=== PATIENT | female | born 1960 | race Caucasian/White ===

== ENCOUNTER 2016-07-31 19:00 | Emergency (ER) | payer OTHER | END 2016-07-31 19:06 | disposition left against medical advice (07) | LOC: ED 19:00 | DX: R05 Cough (principal); Z53.21 Procedure and treatment not carried out due to patient leaving prior to being seen by health care provider ==

== ENCOUNTER 2023-12-31 05:45 | Observation (INO) ==
[2023-12-31] MEDS ORDERED: Labetalol IV 5 MG/ML 20 ml VIAL IV PUSH ONE (15:10)
[2023-12-31] MEDS: Labetalol IV 5 MG/ML 20 ml VIAL IV PUSH ONE (15:49)
[2023-12-31] MEDS ORDERED: Dextrose 50% Syringe 50 ml 25 GM/50 ML SYRINGE IV PUSH PRN (15:57)
[2023-12-31] MEDS ORDERED: Enoxaparin 40 MG/0.4 ML SYR SUBCUT SCH ×2 (16:00)
[2023-12-31] MEDS ORDERED: Labetalol IV 5 MG/ML 20 ml VIAL IV PUSH PRN ×2 (16:18→16:21)
[2023-12-31 16:52] LABS: Free T4 0.68 ng/dL (0.61-1.12)
[2023-12-31 17:33] LABS: TSH Ultra Thyroid Stim Horm 38.21 mcIU/mL (0.34-5.60)
[2023-12-31] MEDS: Enoxaparin 40 MG/0.4 ML SYR SUBCUT SCH (18:45)
[2023-12-31] MEDS: Insulin GLARGINE 100 un/ml 10 ml VIAL SUBCUT SCH (21:43)
[2024-01-01 06:59] LABS: Calcium 9.4 mg/dL (8.6-10.3); Creatinine, Serum 1.16 mg/dL (0.51-0.95); Potassium 3.2 mmol/L (3.5-5.0); eGFR CKD-EPI 52.6 (>60)
[2024-01-01 10:28] LABS: ABS Basophils 0.1 10^3/uL (0.0-0.1); ABS Eosinophils 0.1 10^3/uL (0.0-0.5); ABS Lymphocytes 1.9 10^3/uL (1.0-4.8); ABS Monocytes 0.5 10^3/uL (0.0-0.9); ABS Neutrophils 4.3 10^3/uL (1.5-7.6); Hematocrit 39.1 % (35-45); Hemoglobin 13.5 g/dL (11.5-14.3); Lymphocyte % 27.5 %; Mean Corpuscular Hemoglobin 32.1 pg (27-33); Mean Corpuscular Hgb Conc 34.5 g/dL (31-36); Mean Corpuscular Volume 92.9 fL (80-97); Platelet Count 258 10^3/uL (150-450); Red Blood Count 4.21 10^6/uL (3.63-4.92); Red Cell Distribution Width 17.4 % (12-17); White Blood Count 6.8 10^3/uL (3.8-11.8)
[2024-01-01] MEDS ORDERED: Sulfur Hexaflouride MICROSPHR 25 MG VIAL ONE (11:41)
[2024-01-01] MEDS ORDERED: Senna TAB 8.6 mg TAB PO PRN (21:02)
[2024-01-01] MEDS: Senna TAB 8.6 mg TAB PO PRN (21:32)
[2024-01-02 05:54] LABS: ABS Eosinophils 0.2 10^3/uL (0.0-0.5); ABS Lymphocytes 2.3 10^3/uL (1.0-4.8); ABS Monocytes 0.5 10^3/uL (0.0-0.9); ABS Neutrophils 4.6 10^3/uL (1.5-7.6); ABS Nucleated RBC 0.01 10^3/ul; Eosinophil % 2.2 %; Hematocrit 38.7 % (35-45); Hemoglobin 13.6 g/dL (11.5-14.3); Lymphocyte % 30.4 %; Mean Corpuscular Hemoglobin 32.6 pg (27-33); Mean Corpuscular Hgb Conc 35.1 g/dL (31-36); Mean Corpuscular Volume 92.7 fL (80-97); Mean Platelet Volume 7.8 fL (7.5-11.2); Nucleated Red Blood Cells % 0.1 %/100WBC (0.0-0.8); Platelet Count 285 10^3/uL (150-450); Red Blood Count 4.18 10^6/uL (3.63-4.92); Red Cell Distribution Width 16.9 % (12-17); White Blood Count 7.7 10^3/uL (3.8-11.8)
[2024-01-02 07:18] LABS: Calcium 9.4 mg/dL (8.6-10.3); Creatinine, Serum 1.23 mg/dL (0.51-0.95); Phosphorus 3.6 mg/dL (2.5-5.0); Potassium 3.1 mmol/L (3.5-5.0); eGFR CKD-EPI 49.1 (>60)
[2024-01-02] MEDS ORDERED: Polyethylene Glycol 3350 17 GM PACKET PO SCH (08:00)
[2024-01-02] MEDS: Polyethylene Glycol 3350 17 GM PACKET PO SCH (08:25)
[2024-01-02] MEDS ORDERED: Potassium Chlor 20 meq TAB.ER PO SCH (09:00)
[2024-01-02] MEDS: Potassium Chlor 20 meq TAB.ER PO SCH (11:44)
[2024-01-02] MEDS ORDERED: Nicotine PATCH 14 MG/24 HR PATCH TRANSDERM SCH (22:00)
[2024-01-02] MEDS: Nicotine PATCH 14 MG/24 HR PATCH TRANSDERM SCH (22:23)
[2024-01-03 06:56] LABS: Calcium 8.8 mg/dL (8.6-10.3); Creatinine, Serum 1.19 mg/dL (0.51-0.95); Magnesium 1.9 mg/dL (1.9-2.7); Phosphorus 3.4 mg/dL (2.5-5.0); Potassium 3.7 mmol/L (3.5-5.0); eGFR CKD-EPI 51.1 (>60)
[2024-01-03 07:10] LABS: ABS Eosinophils 0.1 10^3/uL (0.0-0.5); ABS Lymphocytes 2.2 10^3/uL (1.0-4.8); ABS Monocytes 0.6 10^3/uL (0.0-0.9); ABS Neutrophils 4.6 10^3/uL (1.5-7.6); ABS Nucleated RBC 0.01 10^3/ul; Eosinophil % 1.9 %; Hematocrit 39.2 % (35-45); Hemoglobin 13.5 g/dL (11.5-14.3); Lymphocyte % 28.7 %; Mean Corpuscular Hemoglobin 32.6 pg (27-33); Mean Corpuscular Hgb Conc 34.3 g/dL (31-36); Mean Corpuscular Volume 95.1 fL (80-97); Mean Platelet Volume 7.9 fL (7.5-11.2); Nucleated Red Blood Cells % 0.1 %/100WBC (0.0-0.8); Platelet Count 246 10^3/uL (150-450); Red Blood Count 4.13 10^6/uL (3.63-4.92); Red Cell Distribution Width 16.9 % (12-17); White Blood Count 7.6 10^3/uL (3.8-11.8)
[2024-01-04 05:35] LABS: ABS Eosinophils 0.2 10^3/uL (0.0-0.5); ABS Lymphocytes 2.3 10^3/uL (1.0-4.8); ABS Monocytes 0.5 10^3/uL (0.0-0.9); ABS Neutrophils 5.1 10^3/uL (1.5-7.6); Hematocrit 41.6 % (35-45); Hemoglobin 14.1 g/dL (11.5-14.3); Lymphocyte % 28.3 %; Mean Corpuscular Hemoglobin 31.7 pg (27-33); Mean Corpuscular Hgb Conc 33.9 g/dL (31-36); Mean Corpuscular Volume 93.3 fL (80-97); Mean Platelet Volume 7.7 fL (7.5-11.2); Platelet Count 285 10^3/uL (150-450); Red Blood Count 4.46 10^6/uL (3.63-4.92); Red Cell Distribution Width 17.1 % (12-17); White Blood Count 8.2 10^3/uL (3.8-11.8)
[2024-01-04 06:07] LABS: Calcium 9.2 mg/dL (8.6-10.3); Creatinine, Serum 1.05 mg/dL (0.51-0.95); eGFR CKD-EPI 59.3 (>60)
[2024-01-04 12:50] LABS: Rapid COVID-19 Molecular Undetected (Undetected)
[2024-01-04 13:57] VITALS: BP 151/89
[2024-01-04 14:11] LABS: Renin <0.6 ng/mL/h
== END 2024-01-04 16:05 ==
LOC: ED 05:45 → EDHOLD 05:45 → SUATTDRO 13:22 → MED 15:54
PROVIDERS: ADMIT Internal Medicine; ATTEND Internal Medicine